=== PATIENT | male | born 1985 | race Caucasian/White ===

== ENCOUNTER 2020-05-26 14:51 | Emergency (ER) | payer SELFPAY ==
[2020-05-26] MEDS ORDERED: Oxymetazoline 0.05% Nasal Spray 30 ML Bottle NAS ONE (15:07)
--- NOTE | 2020-05-26 15:12 | EDM.PDOC ---
ED HPI GENERAL MEDICAL PROBLEM - General Stated Complaint: nose bleed with purlent drainage Time Seen by Provider: 05/26/20 15:00 Source of Information: Reports: Patient History Limitations: Reports: No Limitations - History of Present Illness INITIAL COMMENTS - FREE TEXT/NARRATIVE: Patient comes emergency department today from home with complaints of a nosebleed and purulent discharge from his nares. This patient since about 5 days ago has had a constant bleed from his left nares initially and has now since spread to the right nares. He has had no recent falls trauma or injury to his sinuses. He relates that he has been seeing some purulent discharge from the sinuses as well. He has sinus congestion pain and pressure. No fever no chills. No difficulty swallowing. No shortness of breath cough or congestion. No fever but subjective subjective chills. No shortness of breath cough or congestion. No chest pain. No weakness dizziness lightheadedness. No visual acuity changes. He is constantly spitting up blood as well as purulent discharge. No Covid exposure no Covid symptoms. Patient also had 2 teeth removed in the right lower mandible about 2 months ago he did not finish out his antibiotics even though he had a clear dental infection as he could not afford them. Right Head Pain Score (Numeric/FACES): 4 - Related Data Allergies Allergy/AdvReac Type Severity Reaction Status Date / Time antibiotic Allergy Other Uncoded 05/26/20 15:18 Home Meds: Home Meds Amoxicillin/Clavulanate K [Augmentin 875-125 MG] 1 tab PO BID #20 tablet 05/26/20 [Rx] predniSONE [Prednisone] 40 mg PO DAILY 4 Days #8 tablet 05/26/20 [Rx] ED ROS ENT - Review of Systems Review Of Systems: Comprehensive ROS is negative, except as noted in HPI. ED EXAM, ENT - Physical Exam Exam: See Below Exam Limited By: No Limitations General Appearance: Alert, WD/WN, No Apparent Distress Eye Exam: Bilateral Eye: EOMI, PERRL Ears: Normal External Exam, Normal TMs Nose: Injected Turbinates (The turbinates on the right are rather unremarkable. And normal in appearance. The turbinates on the patient's left are very large boggy erythematous and injected. There is a small amount of bleeding from the left nasopharynx as well as what appears to be some very thick mucoid versus purulent discharge. Unable to identify any specific abscess. No sinus tenderness on palpation. Small amount of bleeding on the posterior pharynx as well as communication of bleeding from the left to the right posterior nasopharynx. No foreign body material or debris.) Mouth/Throat: Normal Gums, Normal Lips, Normal Teeth (Signs of dental infection abscess or tenderness in the oral cavity.). No: Normal Inspection (Small amount of streaking in the posterior pharynx from postnasal bleeding. Rest of the oral cavity is unremarkable) Head: Atraumatic, Normocephalic Neck: Normal Inspection, Supple, Non-Tender, Full Range of Motion Respiratory/Chest: No Respiratory Distress, Lungs Clear Cardiovascular: Normal Peripheral Pulses, Regular Rate, Rhythm GI/Abdominal: Normal Bowel Sounds Extremities: Normal Inspection Neurological: Alert, Oriented Psychiatric: Normal Affect, Normal Mood Skin: Warm, Dry, Intact, Normal Color Course - Vital Signs Last Recorded V/S: Last Vital Signs Temp 98.6 F 05/26/20 15:00 Pulse 108 H 05/26/20 15:00 Resp 18 05/26/20 15:00 BP 116/82 05/26/20 15:00 Pulse Ox 98 05/26/20 15:00 - Orders/Labs/Meds Meds: Medications Discontinued Medications Generic Name Dose Route Start Last Admin Trade Name Arnold PRN Reason Stop Dose Admin Amoxicillin/Clavulanate Potassium 1 tab 05/26/20 15:56 05/26/20 16:16 Augmentin 875 Mg/125 Mg PO 05/26/20 15:57 1 tab ONETIME ONE Administration Amoxicillin/Clavulanate Potassium 1 packet 05/26/20 15:57 05/26/20 16:16 Take Home: Amox/Clavulanate 875-12, 2 Tab Pac PO 05/26/20 15:58 1 packet ONETIME ONE Administration Oxymetazoline HCl 1 ml 05/26/20 15:07 05/26/20 15:13 Nasal Decongestant [place] HEATHER 05/26/20 15:08 2 spray ONETIME ONE Administration Prednisone 40 mg 05/26/20 15:56 05/26/20 16:16 Prednisone PO 05/26/20 15:57 40 mg ONETIME ONE Administration - Radiology Interpretation Free Text/Narrative:: CT facial bones shows chronic changes of the paranasal sinuses with near complete opacification of the right maxillary sinus with area of hyperdensity consistent with in inspissated secretions. - Re-Assessments/Exams Free Text/Narrative Re-Assessment/Exam: 05/26/20 16:10 Oxymetazoline with resolution of small amount of bleeding. Prednisone 40mg PO Augmentin [address] facial bones per radiology shows chronic changes of the paranasal sinuses. Near complete opacification of the right maxillary sinus with areas of hypersensitivity consistent inspissated secretions. Also partial opacification of left maxillary sinus as well as ethmoid air cells. The bleeding is most likely due to chronic inflammation and mucoid buildup in the sinuses. Was controlled with oxymetazoline. Aggressive management to help with drainage of the sinuses is paramount at this time. Nasal saline rinses as well as oxymetazoline for the next 3 days and Flonase with inflammation as well. We will also use prednisone 40 mg p.o. daily for the next 5 days. Augmentin 1 tablet p.o. twice daily for the next 10 days. He should follow-up in the clinic following this to ensure eradication and prevention of worsening chronic sinusitis. He is understanding this and his questions are answered. Departure - Departure Time of Disposition: 15:55 Disposition: Home, Self-Care 01 Clinical Impression: Chronic sinusitis Qualifiers: Sinusitis location: other Qualified Code(s): J32.8 - Other chronic sinusitis - Discharge Information Prescriptions: Amoxicillin/Clavulanate K [Augmentin 875-125 MG] 1 tab PO BID #20 tablet predniSONE [Prednisone] 40 mg PO DAILY 4 Days #8 tablet Instructions: Antibiotic Medicine, Adult, [id number], Sinusitis, Adult, [id number], How to Perform a Sinus Rinse, [id number], Probiotics Referrals: PCP,None [Primary Care Provider] - Forms: ED Department Discharge Additional Instructions: Saline nasal rinse OTC like Netti Pot twice daily. 10 minutes later. Afrin 2 sprays each nostril twice daily for the next 3 days. NO MORE THAN THREE DAYS bottle dispensed from the ED. 10 minutes later. Flonase, 1 spray each nostril twice daily for the next 7 days and then 1 spray daily. Can purchase OTC. Prednisone 60mg a day for the next 5 days. First dose given in the ED and RX sent to [facility] Augmentin 1 tablet twice daily for the next 10 days. Must finish this no matter what. Starter pack sent home from the ED and Rx to [facility]. Return to the ED if new or worsening symptoms. Follow up with PCP in the next 10 days if not improving sooner if worse.
[2020-05-26 15:41] VITALS: BP 116/82; PULSE 108
--- NOTE | 2020-05-26 15:52 | CT ---
[id number] CT/CT Sinus Survey WO IV EXAM: SINUS CT WITHOUT CONTRAST INDICATION: QUESTION SINUS ABSCESS, LEFT? COMPARISON: None DISCUSSION: There appear to be postsurgical changes of the right maxillary sinus. Near-complete opacification of the right maxillary sinus with areas of hyperdensity consistent with inspissated secretions. No air-fluid levels. Additionally there is partial opacification of the left maxillary sinus as well as ethmoid air cells. The remaining paranasal sinuses and mastoid air cells are well aerated and clear. Mild cortical thickening of the right maxillary sinus. Findings are suggestive of chronic sinusitis. The nasal septum is midline. IMPRESSION: 1. Chronic changes of the paranasal sinuses. No evidence of aggressive sinusitis. Jerod Chaparro DO 05/26/20 [id number] Thank you for allowing us to participate in the care of your patient.
[2020-05-26] MEDS ORDERED: Amoxicillin/Clavulanate K 875-125 MG Tab PO ONE (15:56)
[2020-05-26] MEDS ORDERED: predniSONE 20 MG Tab PO ONE (15:56)
[2020-05-26] MEDS ORDERED: Take Home: Amoxicillin/Clavulanate K 875-125 MG Tab, 2 Tab Pack PO ONE (15:57)
== END 2020-05-26 16:20 | disposition home or self-care (01) ==
LOC: VM.ED 14:51
DX: J32.8 Other chronic sinusitis (principal); R04.0 Epistaxis; Z88.1 Allergy status to other antibiotic agents
CPT/HCPCS: 70486; 99283; 99284; A9270; J7512

== ENCOUNTER 2020-12-04 09:24 | Emergency (ER) | payer SELFPAY ==
[2020-12-04] MEDS ORDERED: Fluorescein 1 MG Ophth Strip EYELF ONE (09:38)
[2020-12-04] MEDS ORDERED: Proparacaine 0.5% Ophth Soln 15 ML Bottle EYELF ONE (09:38)
[2020-12-04] MEDS ORDERED: Polymyxin B/Trimethoprim 10 ML Bottle EYELF ONE (10:02)
[2020-12-04 11:25] VITALS: BP 147/101; PULSE 108
--- NOTE | 2020-12-05 02:56 | EDM.PDOC ---
ED HPI GENERAL MEDICAL PROBLEM - General Chief Complaint: Eye Problems Stated Complaint: EYE PAIN Time Seen by Provider: 12/04/20 09:40 Source of Information: Reports: Patient History Limitations: Reports: No Limitations - History of Present Illness INITIAL COMMENTS - FREE TEXT/NARRATIVE: Pt. presents to ER with complaints of L eye pain after getting a stick in it last night. Pt. states that he is now unable to open the eye. He states that his vision is blurred. Denies any trauma elsewhere. He states that he does not have a regular eye clinic. Onset Date: 12/04/20 Location: Reports: Face Left Eye Pain Score (Numeric/FACES): 6 - Related Data Allergies Allergy/AdvReac Type Severity Reaction Status Date / Time No Known Allergies Allergy Verified 12/04/20 10:06 Home Meds: Home Meds . [No Known Home Meds] 12/04/20 [History] Past Medical History - Past Surgical History HEENT Surgical History: Reports: Oral Surgery Other HEENT Surgeries/Procedures: 2 back molars extracted R mandible. Social & Family History - Tobacco Use Tobacco Use Status *Q: Current Every Day Tobacco User Years of Tobacco use: 20 Packs/Tins Daily: 1 - Recreational Drug Use Recreational Drug Use: Yes Drug Use in Last 12 Months: Yes Recreational Drug Type: Reports: Marijuana/Hashish Recreational Drug Use Frequency: Socially ED ROS GENERAL - Review of Systems Review Of Systems: See Below HEENT: Reports: Eye Discharge, Eye Pain ED EXAM, GENERAL - Physical Exam Exam: See Below Exam Limited By: No Limitations General Appearance: Alert, WD/WN, No Apparent Distress Eye Exam: Left Eye: Conjunctival Injection, Corneal Abrasion, Other (corneal abrasion at 9 o clock position near edge of iris. No retained foreign materials to conjunctiva or underside of either lid.), Bilateral Eye: EOMI, Normal Fundi, PERRL Course - Vital Signs Last Recorded V/S: Last Vital Signs Temp 36.6 C 12/04/20 09:30 Pulse 108 H 12/04/20 09:30 Resp 17 12/04/20 09:30 BP 147/101 H 12/04/20 09:30 Pulse Ox 97 12/04/20 09:30 - Orders/Labs/Meds Meds: Medications Discontinued Medications Generic Name Dose Route Start Last Admin Trade Name Freq PRN Reason Stop Dose Admin Fluorescein Sodium 1 mg 12/04/20 09:38 12/04/20 10:09 Fluorescein 1 Mg Ophth Strip EYELF 12/04/20 09:39 1 mg ONETIME ONE Administration Polymyxin/Trimethoprim Sulfate 1 ml 12/04/20 10:02 12/04/20 10:11 Polymyxin B/Trimethoprim 10 Ml Bottle EYELF 12/04/20 10:03 1 drop ONETIME ONE Administration Proparacaine HCl 1 ml 12/04/20 09:38 12/04/20 10:09 Proparacaine 0.5% Ophth Soln 15 Ml Bottle EYELF 12/04/20 09:39 1 applic ONETIME ONE Administration Departure - Departure Time of Disposition: 10:15 Disposition: Home, Self-Care 01 Clinical Impression: Corneal abrasion - Discharge Information Instructions: Polymyxin B; Trimethoprim eye drops, solution, Corneal Abrasion, [id number] Referrals: PCP,None [Primary Care Provider] - Forms: ED Department Discharge Additional Instructions: [facility] is able to see you this morning. You may have to wait a bit but they will squeeze you in since it is an emergency. Polytrim drops 1 drop into L eye every 4 hours Sepsis Event Note (ED) - Evaluation Sepsis Screening Result: No Definite Risk - Problem List Review Problem List Initiated/Reviewed/Updated: Yes - Assessment/Plan Plan: [facility] is able to see you this morning. You may have to wait a bit but they will squeeze you in since it is an emergency. Polytrim drops 1 drop into L eye every 4 hours
== END 2020-12-04 10:15 | disposition home or self-care (01) ==
LOC: VM.ED 09:24 → SUPCPDRO 09:24 → VM.ED 10:15
DX: S05.02XA Injury of conjunctiva and corneal abrasion without foreign body, left eye, initial encounter (principal); Z72.0 Tobacco use; W22.8XXA Striking against or struck by other objects, initial encounter
CPT/HCPCS: 99283; A9270-GY